=== PATIENT | male | born 1930 | race Caucasian/White ===

== ENCOUNTER 2017-03-26 14:18 | Observation (INO) | payer OTHER ==
[2017-03-26 14:36] VITALS: BMI 20.7
[2017-03-26 16:34] LABS: MCH 32.3 pg (25.7-33.7); MCHC 33.3 g/dl (32.0-35.9); MEAN CELL VOLUME 97.1 fl (80-96); MEAN PLT VOLUME 8.7 fl (7.5-11.1); PLATELET COUNT 167 K/MM3 (134-434); RDW 13.6 % (11.9-15.9); WHITE BLOOD COUNT 6.6 K/mm3 (4.0-10.0)
--- NOTE | 2017-03-26 16:39 | PDOC ---
History of Present Illness - History of Present Illness Initial Comments: 03/26/17 16:38 CHIEF COMPLAINT: HISTORY OF PRESENT ILLNESS: 86 yo M with hx of HTN, pneumothorax, lung resection (unknown reason), osteoarthritis, presents to ED s/p unwitnessed fall at home. Family reports that patient lives alone with home specialist; unsure of LOC, denies nausea, vomiting. Family reports that he "must have hit his head because there is a bump." Patient reports pain to left wrist and left sacrum. Denies chest pain, shortness of breath, difficulty breathing. No recent travel or sick contacts. PAST MEDICAL HISTORY: Denies past medical history FAMILY HISTORY: Denies SOCIAL HISTORY: Denies tobacco, alcohol, illicit drug use. SURGICAL HISTORY: Denies ALLERGIES: No known drug allergies REVIEW OF SYSTEMS General/Constitutional: Denies fever or chills. Denies weakness. HEENT: Denies change in vision. Denies ear pain or discharge. Denies sore throat. Cardiovascular: Denies chest pain or shortness of breath. Respiratory: Denies cough, wheezing, or hemoptysis. Gastrointestinal: Denies nausea, vomiting, diarrhea or constipation. Denies rectal bleeding. Genitourinary: Denies dysuria, frequency, or change in urination. Musculoskeletal: Pain to left wrist and left sacrum. Denies neck or back pain. Skin and breasts: Denies rash or easy bruising. Neurologic: Denies headache, vertigo, loss of consciousness, or loss of sensation. PHYSICAL EXAM General Appearance: Well-appearing, appropriately dressed. No apparent distress. HEENT: Hematoma to R occipital/parietal scalp. EOMI, PERRLA, normal ENT inspection, normal voice, TMs normal, pharynx normal. No conjunctival pallor. No photophobia, scleral icterus. Neck: Supple. Trachea midline. No tenderness, rigidity, carotid bruit, stridor , lymphadenopathy, or thyromegaly. Respiratory/Chest: Diffuse wheezing b/l. No shortness of breath, chest tenderness, respiratory distress, accessory muscle use. No crackles, rales, rhonchi, stridor, wheezing, dullness Cardiovascular: RRR. S1, S2. No JVD, murmur, bradycardia, tachycardia. Vascular Pulses: Dorsalis-Pedis (R): 2+, Dorsalis-Pedis (L): 2+ Gastrointestinal/Abdominal: Normal bowel sounds. Abdomen soft, non-distended. No tenderness or rebound tenderness. No organomegaly, pulsatile mass, guarding , hernia, hepatomegaly, splenomegaly. Lymphatic: No adenopathy, tenderness. Musculoskeletal/Extremities: Tenderness to left sacrum. Ecchymosis and tenderness to left wrist, limited ROM secondary to pain. Pelvis Stable. No CVA tenderness. Integumentary: Appropriate color, dry, warm. 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 Fully oriented, alert. Appropriate mood/affect. Motor strength 5/5. No appreciable EOM palsy, facial droop or sensory deficit. <Yisel Gonsales - Last Filed: 03/26/17 18:48> <Gal Arevalo - Last Filed: 03/26/17 20:32> - General Chief Complaint: Injury Stated Complaint: FALL Time Seen by Provider: 03/26/17 15:24 Past History - Past Medical History Asthma: Yes HTN: Yes Seizures: Yes Other medical history: ARTHRITIS - Surgical History Abdominal Surgery: Yes Lung Surgery: Yes (RT) - Immunization History Immunization Up to Date: Yes - Psycho/Social/Smoking Cessation Hx Anxiety: No Suicidal Ideation: No Smoking History: Former smoker Have you smoked in the past 12 months: No Information on smoking cessation initiated: No Hx Alcohol Use: No Drug/Substance Use Hx: No Substance Use Type: None Hx Substance Use Treatment: No <Yisel Gonsales - Last Filed: 03/26/17 18:48> <Gal Arevalo - Last Filed: 03/26/17 20:32> - Past Medical History Allergies/Adverse Reactions: Allergies Allergy/AdvReac Type Severity Reaction Status Date / Time No Known Allergies Allergy Verified 03/26/17 14:36 Home Medications: Ambulatory Orders Albuterol 2.5/Ipratropium 0.5 [Duoneb -] 1 neb NEB TID PRN #20 vial 02/23/15 Amlodipine Besylate [Norvasc -] 5 mg PO DAILY #30 tablet 02/23/15 *Physical Exam - Vital Signs Last Vital Signs Temp Pulse Resp BP Pulse Ox 98.4 F 92 H 18 104/53 92 L 03/26/17 14:32 03/26/17 14:32 03/26/17 14:32 03/26/17 14:32 03/26/17 14:32 <Yisel Gonsales - Last Filed: 03/26/17 18:48> - Vital Signs Last Vital Signs Temp Pulse Resp BP Pulse Ox 98.1 F 81 16 103/68 96 03/26/17 18:52 03/26/17 18:52 03/26/17 18:52 03/26/17 18:52 03/26/17 18:52 <Gal Arevalo - Last Filed: 03/26/17 20:32> ED Treatment Course - LABORATORY CBC & Chemistry Diagram: 03/26/17 16:20 03/26/17 16:20 - ADDITIONAL ORDERS Additional order review: 03/26/17 16:20 RBC 3.52 L MCV 97.1 H MCHC 33.3 RDW 13.6 MPV 8.7 D - RADIOLOGY Radiology Studies Ordered: Category Date Time Status CERVICAL SPINE CT W/O CONTR [CT] Stat CT Scan 03/26/17 16:[address] WITHOUT CONTRAST [CT] Stat CT Scan 03/26/17 16:07 Ordered CHEST PA & LAT [RAD] Stat Radiology 03/26/17 16:07 Ordered HIP & PELVIS-LEFT [RAD] Stat Radiology 03/26/17 16:07 Ordered WRIST W/HAND-LEFT* [RAD] Stat Radiology 03/26/17 16:07 Ordered <Yisel Gonsales - Last Filed: 03/26/17 18:48> - LABORATORY CBC & Chemistry Diagram: 03/26/17 16:20 03/26/17 16:20 - ADDITIONAL ORDERS Additional order review: Laboratory Results 03/26/17 03/26/17 03/26/17 17:20 16:20 16:20 INR Sodium 139 Potassium 4.8 Chloride 102 Carbon Dioxide 26 Anion Gap 11 BUN 35 H D Creatinine 1.8 H D Creat Clearance w eGFR 35.79 Random Glucose 107 H Calcium 8.2 L Total Bilirubin 0.5 D AST 37 D ALT 23 Alkaline Phosphatase 92 Total Protein 7.8 Albumin 3.5 D Urine Color Yellow Urine Appearance Clear Urine pH 5.0 Urine Protein 2+ H Urine Glucose (UA) Negative Urine Ketones Negative Urine Blood 1+ H Urine Nitrite Negative Urine Bilirubin Negative Urine Urobilinogen Negative Ur Leukocyte Esterase Negative Urine RBC 6 Urine WBC <1 Hyaline Casts 4 Urine Mucus Rare Blood Type A POSITIVE Antibody Screen Negative 03/26/17 16:20 INR 1.06 Sodium Potassium Chloride Carbon Dioxide Anion Gap BUN Creatinine Creat Clearance w eGFR Random Glucose Calcium Total Bilirubin AST ALT Alkaline Phosphatase Total Protein Albumin Urine Color Urine Appearance Urine pH Urine Protein Urine Glucose (UA) Urine Ketones Urine Blood Urine Nitrite Urine Bilirubin Urine Urobilinogen Ur Leukocyte Esterase Urine RBC Urine WBC Hyaline Casts Urine Mucus Blood Type Antibody Screen 03/26/17 16:20 RBC 3.52 L MCV 97.1 H MCHC 33.3 RDW 13.6 MPV 8.7 D <Gal Arevalo - Last Filed: 03/26/17 20:32> Medical Decision Making - Medical Decision Making 03/26/17 17:17 86 yo M with hx of HTN, pneumothorax, lung resection (unknown reason), osteoarthritis, presents to ED s/p unwitnessed fall at home. -EKG -CBC, CMP, PT/INR, T&S -Head/C-spine CT -L wrist/hip&pelv x-rays -Chest x-ray 03/26/17 18:28 CTs, x-rays negative. Labs: Creatinine elevated 1.8 from 1.0 previously. Will admit for SHERLEY and further monitoring s/p fall. Discussed case with hospitalist attending MD [facility], who accepts patient for med /surg admission <Yisel Gonsales - Last Filed: 03/26/17 18:48> *DC/Admit/Observation/Transfer - Discharge Dispostion Admit: Yes <Yisel Gonsales - Last Filed: 03/26/17 18:48> - Discharge Dispostion Admit: No <Gal Arevalo - Last Filed: 03/26/17 20:32> Diagnosis at time of Disposition: SHERLEY (acute kidney injury) Fall Qualifiers: Encounter type: initial encounter Qualified Code(s): W19.XXXA - Unspecified fall, initial encounter - Discharge Dispostion Disposition: AGAINST MEDICAL ADVICE Condition at time of disposition: Stable - Referrals
[2017-03-26 17:00] LABS: INR 1.06 (0.82-1.09); PROTHROMBIN TIME (PATIENT) 11.7 SEC (9.98-11.88)
[2017-03-26 17:04] LABS: ALBUMIN 3.5 g/dl (3.4-5.0); BILIRUBIN,TOTAL 0.5 mg/dL (0.2-1.0); CALCIUM 8.2 mg/dL (8.5-10.1); COCKROFT - GAULT 20.63; CREATININE 1.8 mg/dL (0.7-1.3); TOT PROT 7.8 g/dl (6.4-8.2)
[2017-03-26 17:42] LABS: URINE APPEARANCE CLEAR; URINE BILIRUBIN NEGATIVE (NEGATIVE); URINE COLOR YELLOW; URINE GLUCOSE (UA) NEGATIVE (NEGATIVE); URINE KETONE NEGATIVE (NEGATIVE); URINE LEUK ESTERASE NEGATIVE (NEGATIVE); URINE NITRITE NEGATIVE (NEGATIVE); URINE UROBILINOGEN NEGATIVE E.U./dl (0.2-1.0)
[2017-03-26 17:49] LABS: URINE BLOOD 1+ (NEGATIVE); URINE PROTEIN 2+ (NEGATIVE)
[2017-03-26 17:50] LABS: URINE HYALINE CAST 4 /lpf; URINE MUCUS RARE; URINE RBC 6 /hpf (0-3); URINE WBC <1 /hpf (3-5)
--- NOTE | 2017-03-26 19:26 | PN ---
<Ahsan Reddy - Last Filed: 03/26/17 20:25> Teaching Attending Note ATTENDING PHYSICIAN STATEMENT I saw and evaluated the patient. I reviewed the resident's note and discussed the case with the resident. I agree with the resident's findings and plan as documented. SUBJECTIVE: The patient is an 86 year old male, accompanied by family, with a past medical history of HTN, asthma, seizure disorder, pneumothorax, osteoarthritis, who presented to Emergency Department s/p unwitnessed fall at home. The patient stated that he is unsure if he loss consciousness but noted left wrist and left sacrum pain. In ED family stated that he must have hit his head because there is a bump. He denied chest pain, shortness of breath, difficulty breathing, nausea, vomiting, or diarrhea PAST MEDICAL HISTORY: HTN, asthma, seizure disorder, pneumothorax, osteoarthritis PAST SURGICAL HISTORY: Abdominal surgery, lung resection FAMILY HISTORY: No pertinent history reported SOCIAL HISTORY: None reported MEDICATIONS: Reviewed ALLERGIES: NKDA OBJECTIVE: Last Vital Signs 3 Temp Pulse Resp BP Pulse Ox 98.1 F 81 16 103/68 96 03/26/17 18:52 03/26/17 18:52 03/26/17 18:52 03/26/17 18:52 03/26/17 18:52 Labs: CBCD 3 WBC 6.6 K/mm3 (4.0-10.0) D 03/26/17 16:20 RBC 3.52 M/mm3 (4.00-5.60) L 03/26/17 16:20 Hgb 11.4 GM/dL (11.7-16.9) L 03/26/17 16:20 Hct 34.2 % (35.4-49) L 03/26/17 16:20 MCV 97.1 fl (80-96) H 03/26/17 16:20 MCHC 33.3 g/dl (32.0-35.9) 03/26/17 16:20 RDW 13.6 % (11.9-15.9) 03/26/17 16:20 Plt Count 167 K/MM3 (134-434) D 03/26/17 16:20 MPV 8.7 fl (7.5-11.1) D 03/26/17 16:20 CMP 3 Sodium 139 mmol/L (136-145) 03/26/17 16:20 Potassium 4.8 mmol/L (3.5-5.1) 03/26/17 16:20 Chloride 102 mmol/L (98-107) 03/26/17 16:20 Carbon Dioxide 26 mmol/L (21-32) 03/26/17 16:20 Anion Gap 11 (8-16) 03/26/17 16:20 BUN 35 mg/dL (7-18) H D 03/26/17 16:20 Creatinine 1.8 mg/dL (0.7-1.3) H D 03/26/17 16:20 Creat Clearance w eGFR 35.79 (>60) 03/26/17 16:20 Calcium 8.2 mg/dL (8.5-10.1) L 03/26/17 16:20 Total Bilirubin 0.5 mg/dL (0.2-1.0) D 03/26/17 16:20 AST 37 U/L (15-37) D 03/26/17 16:20 ALT 23 U/L (12-78) 03/26/17 16:20 Alkaline Phosphatase 92 U/L (45-117) 03/26/17 16:20 Total Protein 7.8 g/dl (6.4-8.2) 03/26/17 16:20 Albumin 3.5 g/dl (3.4-5.0) D 03/26/17 16:20 Imagin. EXAM: HEAD CT WITHOUT CONTRAST DATE OF SERVICE: 2017-03-26 16:50:10.0 INDICATION: Status post fall. COMPARISON: None FINDINGS: No evidence of acute intracranial abnormality demonstrated. Mild diffuse atrophy and mild underlying chronic microvascular ischemic disease. There is no CT evidence of acute cortical territorial infarction, bleed, mass lesion, mass effect, hydrocephalus or abnormal extraaxial collection. No acute sinusitis or mastoiditis is identified. No acute skull fracture or calvarial lesion is noted. THIS DOCUMENT HAS BEEN ELECTRONICALLY SIGNED Samir Bhakta MD 03/26/2017 17:12 EST 2. EXAM: CERVICAL SPINE CT W/O CONTR DATE OF SERVICE: 2017-03-26 16:45:11.0 INDICATION: Status post fall. COMPARISON: None compared. FINDINGS: Severe disc degeneration is seen with mild endplate osteophytes at C4- 5, C5-6 and C6-7. Minimal anterolisthesis at C3-4, minimal retrolisthesis at C5 -6, secondary to degenerative spondylosis. Multi-level facet enlargement without acute fracture or malalignment. Severe atherosclerotic carotid calcifications. Right lung apical fibrosis with peripheral sutures versus catheter. THIS DOCUMENT HAS BEEN ELECTRONICALLY SIGNED Samir Bhakta MD 03/26/2017 17:17 EST 3. Hand/Wrist X-ray. Impression: Official report pending. 4. Hip/Pelvis X-ray. Impression: Official report pending. 5. Chest X-ray. Impression: Official report pending. ASSESSMENT AND PLAN: 86 year old male, accompanied by family, with a past medical history of HTN, asthma, seizure disorder, pneumothorax, osteoarthritis who presented post fall. 1. Unwitnessed fall - Possible syncope - Orthostatic vital signs - ECHO complete - Carotid ultrasound - ECG 2. SHERLEY ? history of CKD - Genital hydration - Trend creatinine 3. Asthma - Continue nebulizers as needed 4. HTN Continue amlodipine 5. DVT PPX- Low risk - SCDs Place in observation tele. Documentation prepared by Ahsan Reddy, acting as medical cash poster for Dr. Jose Fishman MD. ADDENDUM: Patient wants to sign out AGAINST MEDICAL ADVICE. Patient was informed of the risks if he leaves AGAINST MEDICAL ADVICE. Patient refused physical examination or any other medical assistance. Patient was told to return to the emergency department immediately if he has any lightheadedness, loss of consciousness, palpitations, chest pain, or any other cardiovascular symptoms. <Jose Fishman - Last Filed: 03/27/17 06:58> Teaching Attending Note Name of Resident: Ale Nava
--- NOTE | 2017-03-26 19:43 | HP ---
CHIEF COMPLAINT: PCP: HISTORY OF PRESENT ILLNESS: Patient is an 86 yo M with PMH of HTN, pneumothorax, lung resection, oa, Sz, asthma, who presented s/p unwitnessed fall at home. Unsure whether he had LOC. Appears to have bumped head. Family reports that patient lives alone with in home aide. per EMR, denies nausea, vomiting, cp, sob but reports pain in L wrist and sacrum. In ER Ct head, x ray chest, wrist, hip, spine negative. EKG no arrythmia or acs. Creat 1.8 up from baseline of 1.3 in 2015. Patient AAO, states he wishes to leave AMA despite being explained the risk. Refuses h and p or exam. ER course was notable for: (1)labs (2)ekg (3)Ct head, x ray chest, wrist, hip, spine Recent Travel: denied PAST MEDICAL HISTORY: as above PAST SURGICAL HISTORY: lung resection, abd ivana Social History: lives at home alone with aid Smoking: past smoker Alcohol: denied Drugs: denied Family History: Allergies No Known Allergies Allergy (Verified 03/26/17 14:36) HOME MEDICATIONS: Home Medications Medication Instructions Recorded Albuterol 2.5/Ipratropium 0.5 1 neb NEB TID PRN #20 vial 02/23/15 [Duoneb -] Amlodipine Besylate [Norvasc -] 5 mg PO DAILY #30 tablet 02/23/15 REVIEW OF SYSTEMS unable to obtain, patient refuses PHYSICAL EXAMINATION Vital Signs - 24 hr 03/26/17 18:52 Temperature 98.1 F Pulse Rate [ 81 Left Apical] Respiratory 16 Rate Blood Pressure 103/68 [Left Arm] O2 Sat by Pulse 96 Oximetry (%) unable to obtain, patient refuses ASSESSMENT/PLAN: Patient is an 86 yo M with PMH of HTN, pneumothorax, lung resection, oa, Sz, asthma, who presented s/p unwitnessed fall at home. Fall -unsure if mechanical or if experienced loc -t head, x ray chest, wrist, hip, spine negative. -aaox3 -refuses H and P -asks to leave AMA, verbalizes understanding of risks. -asked to come back is experiencing sob, chest pain, another fall, pain AKA vs CKD -creat slightly above baseline several years ago -may be natural progression of renal impairment vs vol depletion -refusing care Problem List - Problem (1) Fall Code(s): W19.XXXA - UNSPECIFIED FALL, INITIAL ENCOUNTER Qualifiers: Encounter type: initial encounter Qualified Code(s): W19.XXXA - Unspecified fall, initial encounter Visit type - Emergency Visit Emergency Visit: Yes ED Registration Date: 03/26/17 Care time: The patient presented to the Emergency Department on the above date and was hospitalized for further evaluation of their emergent condition. - New Patient This patient is new to me today: Yes Date on this admission: 03/26/17 - Critical Care Critical Care patient: No
[2017-03-26 20:54] VITALS: BP 128/54; PULSE 89; TEMP 97.7
--- NOTE | 2017-03-27 10:55 | EKG ---
Test Reason : Blood Pressure : / mmHG Vent. Rate : 084 BPM Atrial Rate : 084 BPM P-R Int : 168 ms QRS Dur : 134 ms QT Int : 394 ms P-R-T Axes : 039 066 058 degrees QTc Int : 465 ms SINUS RHYTHM WITH PREMATURE ATRIAL COMPLEXES RIGHT BUNDLE BRANCH BLOCK ABNORMAL ECG Confirmed by MD ROMMEL, KEITH ([id number]) on 03/27/2017 10:54:37 AM Referred By: Confirmed By:KEITH CARNEY MD
== END 2017-03-26 20:56 | disposition left against medical advice (07) ==
LOC: JER 14:18 → JERBED 18:47
PROVIDERS: ADMIT Internal Medicine; ATTEND Internal Medicine
DX: N17.9 Acute kidney failure, unspecified (principal); W19.XXXA Unspecified fall, initial encounter; Y93.9 Activity, unspecified; Y92.9 Unspecified place or not applicable; I10 Essential (primary) hypertension; J45.909 Unspecified asthma, uncomplicated; Z86.69 Personal history of other diseases of the nervous system and sense organs; Z87.891 Personal history of nicotine dependence
CPT/HCPCS: 36415; 70450-TC; 71020-TC; 72125-TC; 73110-TC-LT; 73130-TC-LT; 73523-TC; 80053; 81003; 81015; 85027; 85610; 86850; 86900; 86901; 87086; 93005; 93010; 99284-25; G0378